=== PATIENT | male | born 1940 | race Caucasian/White ===

== ENCOUNTER 2016-12-12 13:20 | Day surgery (SDC) | payer OTHER ==
[~2016-12-12] VITALS: Ht 157.5 cm; Wt 61.0 kg
[2016-12-12] VITALS (7 sets, daily range): BP systolic 106–135; BP diastolic 51–62; PULSE 70–88; RESP 9–18; Ht 157.5 cm; Wt 61.0 kg
[~2016-12-12 13:20] MED LIST: CLON-379 PO; FURO40TA4 PO; GLIM1TAB2 PO; LEVO75TA5 PO; NIFE90TA11 PO; TERA2CAP3 PO; ZOC10 PO
[2016-12-12] MEDS ORDERED: LANT3I SC (14:12)
[2016-12-12] MEDS ORDERED: LISI40TA9 PO (14:12)
[2016-12-12] MEDS ORDERED: CLON-379 PO (14:13)
[2016-12-12] MEDS ORDERED: FOLI-49 PO (14:15)
[2016-12-12] MEDS ORDERED: FER325 PO (14:17)
[2016-12-12] MEDS ORDERED: GLIM1TAB2 PO (14:19)
[2016-12-12] MEDS ORDERED: NITR0.4T6 SL (14:21)
[2016-12-12] MEDS ORDERED: NEPH PO (14:23)
[2016-12-12] MEDS ORDERED: CHOL100062 PO (14:23)
[2016-12-12] MEDS ORDERED: IODIXANOL LOCM 100 ML BTL ONE (14:54)
[2016-12-12] MEDS ORDERED: HEPARIN 1000 UNITS/NS (A-LINE) 1,000 ML ONE (14:54)
[2016-12-12] MEDS ORDERED: IODIXANOL LOCM 50 ML BTL ONE ×2 (14:54→16:02)
[2016-12-12] MEDS ORDERED: LIDOCAINE 1% (MDV) 20 ML INJ ONE (14:54)
[2016-12-12] MEDS ORDERED: FENTAnyl 50 MCG/ML VIAL ONE (15:39)
[2016-12-12] MEDS ORDERED: MIDAZOLAM 1 MG/ML 2 ML INJ ONE (15:39)
--- NOTE | 2016-12-12 21:55 | OPR ---
DATE OF OPERATION: PREOPERATIVE DIAGNOSES: 1. Renal failure. 2. Dysfunctional left upper extremity arteriovenous fistula. POSTOPERATIVE DIAGNOSES: 1. Renal failure. 2. Dysfunctional left upper extremity arteriovenous fistula. OPERATION PERFORMED 1. Left radial artery angioplasty, 5 x 40 mm ____. 2. Left fistulogram. 3. Central venogram. 4. Interpretation and supervision of this angioplasty. 5. Interpretation and supervision of the central venogram. 6. Fluoroscopy. 7. Moderate sedation for 1 hour. SURGEON: Nick Zapien MD ANESTHESIA: Local plus IV sedation. CONSENT: Risks, benefits, complications, alternative therapies explained to the patient and the [facility] [place], consent obtained. OPERATIVE TECHNIQUE: The patient was placed in supine position, prepped and draped in usual sterile fashion, 1% lidocaine was used throughout the operation for local anesthesia. Access was gained in the left arm AV fistula. Guidewire was advanced through without any difficulties. A 4-Portuguese rodríguez th was advanced over a guidewire. Fistulogram and a central venogram were done which showed no evid ence of any stenosis in the left Molly fistula in the forearm, which was draining into the cephalic system and the brachial system, which was patent, into the axillary system, which was patent, subcl courtney patent, superior vena cava patent. No evidence of any obstruction. Arterial venogram was done which showed an 80% stenosis at the arterial anastomosis. The patient wa s given 5000 units of IV heparin. The arterial anastomosis was angioplastied over an 0.035 Glidewir e using up to 2 atmospheres of pressure. The final angiogram revealed less than 10% stenosis in thi s area. Both sheaths were then removed and entrance site was closed using a single 3-0 Vicryl sutur e in interrupted fashion. The patient tolerated procedure well. Dictated By: NICK HARRIS/JL Conf#: [id number] DID#: [id number]
== END 2016-12-12 18:15 | disposition home or self-care (01) ==
LOC: SDS 13:20
PROVIDERS: ATTEND Thoracic Surgery (Cardiothoracic Vascular Surgery)
DX: T82.898A Other specified complication of vascular prosthetic devices, implants and grafts, initial encounter (principal); Y84.8 Other medical procedures as the cause of abnormal reaction of the patient, or of later complication, without mention of misadventure at the time of the procedure; Y92.89 Other specified places as the place of occurrence of the external cause; I12.0 Hypertensive chronic kidney disease with stage 5 chronic kidney disease or end stage renal disease; N18.6 End stage renal disease; E11.9 Type 2 diabetes mellitus without complications; E78.00 Pure hypercholesterolemia, unspecified; Z79.4 Long term (current) use of insulin
CPT/HCPCS: 37248; 82962; 84132; C1725; C1769; J1644; J2250; J3010; Q9967; Z7610